=== PATIENT | male | born 1990 | race Caucasian/White ===

== ENCOUNTER 2016-12-29 15:27 | Inpatient (IN) | payer BC ==
[~2016-12-29] VITALS: Ht 180.3 cm; Wt 96.0 kg
[2016-12-29] MEDS ORDERED: KETAMINE 500 MG INJ IV STA (15:31)
[2016-12-29] MEDS ORDERED: HYDROmorphONE 1 MG/ML SYG IV STA ×5 (15:31→22:43)
[2016-12-29] MEDS ORDERED: PROPOFOL 200 MG INJ IV STA (15:31)
[2016-12-29] MEDS ORDERED: ONDANSETRON 4 MG INJ IV STA ×4 (15:31→20:20)
[2016-12-29] MEDS ORDERED: SOD CHLORIDE 0.9% 250 ML IV STA (15:31)
[2016-12-29 15:32] VITALS: Ht 180.3 cm; Wt 96.0 kg
[2016-12-29 15:56] VITALS: TEMP 98.2
--- NOTE | 2016-12-29 16:03 | RADRPT ---
PROCEDURE: XR right ankle. CLINICAL INDICATION: Injury TECHNIQUE: 4 views are available for review. COMPARISON: None available FINDINGS: There is an acute short oblique fracture of the distal third of the fibula with posterior dislocatio n of the talus in relationship to the tibia. The distal fibular fragment remains with the talus. The osseous structures are otherwise unremarkable. There is diffuse soft tissue swelling. IMPRESSION: Acute short oblique fracture of the distal third of the fibula with posterior dislocation of the tyron us in relationship to the tibia. The distal fibular fragment remains with the talus. Soft tissue swelling lateral to the lateral malleolus. RPTAT: HGDB .Antonio Pitt MD, MD Date Time Electronically viewed and signed by .Antonio Pitt MD, on 12/29/2016 16:03 .B/
[2016-12-29 16:25] LABS: ADD SCAN DIFF NO
[2016-12-29 16:28] LABS: BASOPHILS % 0.2 % (0.0-2.0); EOSINOPHILS # 0.1 10^3/ul (0.0-0.5); EOSINOPHILS % 0.6 % (0.0-7.0); HEMATOCRIT 41.2 % (42.0-52.0); HEMOGLOBIN 14.3 g/dl (14.0-18.0); LYMPHOCYTES # 1.9 10^3/ul (0.8-2.9); LYMPHOCYTES % 22.1 % (15.0-51.0); MEAN CORPUSCULAR HEMOGLOBIN 29.6 pg (29.0-33.0); MEAN CORPUSCULAR HGB CONC 34.7 g/dl (32.0-37.0); MEAN CORPUSCULAR VOLUME 85.3 fl (82.0-101.0); MEAN PLATELET VOLUME 9.7 fl (7.4-10.4); MONOCYTE # 0.9 10^3/ul (0.3-0.9); MONOCYTES % 10.3 % (0.0-11.0); NEUTROPHIL # 5.6 10^3/ul (1.6-7.5); NEUTROPHILS % 66.6 % (39.0-77.0); PLATELET COUNT 233 10^3/UL (140-415); RED BLOOD COUNT 4.83 10^6/ul (4.70-6.10); RED CELL DISTRIBUTION WIDTH 12.4 % (11.5-14.5); WHITE BLOOD COUNT 8.5 10^3/ul (4.8-10.8)
--- NOTE | 2016-12-29 16:45 | RADRPT ---
PROCEDURE: XR Ankle. CLINICAL INDICATION: Right ankle pain, follow-up fracture TECHNIQUE: 3 views of the right ankle were performed. COMPARISON: None. FINDINGS: There is interval reduction of the previously seen posterior tibiotalar dislocation. There is a a m ildly displaced obliquely oriented distal fibular fracture above the mortise and probable small post erior and medial malleolar fractures Overlying cast obscures fine bony detail. There is diffuse soft tissue swelling. IMPRESSION: 1. Reduction of previously seen posterior tibiotalar dislocation. 2. Mildly displaced distal fibular fracture above the mortise and probable small posterior and media l malleolar fractures. RPTAT: UU .George Baldwin MD, MD Date Time Electronically viewed and signed by .George Baldwin MD, on 12/29/2016 16:44 .K/
[2016-12-29 16:47] LABS: CALCIUM 8.6 mg/dl (8.4-10.2); CREATININE 0.88 mg/dl (0.61-1.24)
--- NOTE | 2016-12-29 16:54 | ERA ---
ER Documentation Chief Complaint Date/Time DATE: 12/29/16 TIME: 16:51 Chief Complaint right ankle dislocation s/p jumping at [facility] HPI 26-year-old male who presents the emergency room with right ankle deformity. He was [place] [employer] just prior to arrival and had severe pain to the right ankle with what appears to be a dislocation. Patient describes 10 out of 10 pain to the right ankle, constant and nonradiating. No other injuries. ROS All systems reviewed and are negative except as per history of present illness. Medications Home Meds No Active Prescriptions or Reported Meds Allergies Allergies: Coded Allergies: No Known Allergy (Unverified , 12/29/16) PMhx/Soc Hx Alcohol Use: No Hx Substance Use: No Hx Tobacco Use: No FmHx Family History: No diabetes Physical Exam Vitals Vital Signs Date Time Temp Pulse Resp B/P Pulse Ox O2 Delivery O2 Flow Rate FiO2 12/29/16 18:02 84 15 133/82 100 Nasal Cannula 2.0 12/29/16 16:20 86 18 138/83 100 Nasal Cannula 2.0 12/29/16 16:15 86 18 155/98 100 Nasal Cannula 2.0 12/29/16 16:09 88 18 163/94 100 Nasal Cannula 2.0 12/29/16 16:04 100 20 165/100 100 Nasal Cannula 2.0 12/29/16 16:00 97 18 175/100 100 Nasal Cannula 2.0 12/29/16 15:56 98.2 94 18 138/85 100 Nasal Cannula 2.0 12/29/16 15:44 100 4.0 12/29/16 15:32 98.2 97 18 125/76 98 Physical Exam General: Well developed, well nourished, in pain Head: Normocephalic, atraumatic. Eyes: Pupils equally reactive, EOM intact ENT: Moist mucous membranes Neck: Supple, no lymphadenopathy Respiratory: Lungs clear bilaterally, no distress Cardiovascular: RRR, no murmurs, rubs, or gallops Abdominal: Soft, non-tender, non-distended, no peritoneal signs : Deferred MSK: Obvious deformity noted to the right ankle with apparent anterior dislocation of the tibia on the talus, absent DP pulse, 1+ posterior tibial pulse. No tenderness to the knee or proximal tibia or fibula. No break in the skin. Neurologic: Alert and oriented, moving all extremities, normal speech, no focal weakness, no cerebellar signs Skin: No rash Psych: Normal mood Result Diagram: 12/29/16 1620 12/29/16 1620 Results 24 hrs Laboratory Tests Test 12/29/16 16:20 White Blood Count 8.510^3/ul Red Blood Count 4.8310^6/ul Hemoglobin 14.3g/dl Hematocrit 41.2% Mean Corpuscular Volume 85.3fl Mean Corpuscular Hemoglobin 29.6pg Mean Corpuscular Hemoglobin Concent 34.7g/dl Red Cell Distribution Width 12.4% Platelet Count 30240^3/UL Mean Platelet Volume 9.7fl Neutrophils % 66.6% Lymphocytes % 22.1% Monocytes % 10.3% Eosinophils % 0.6% Basophils % 0.2% Nucleated Red Blood Cells % 0.0/100WBC Neutrophils # 5.610^3/ul Lymphocytes # 1.910^3/ul Monocytes # 0.910^3/ul Eosinophils # 0.110^3/ul Basophils # 0.010^3/ul Nucleated Red Blood Cells # 0.010^3/ul Sodium Level 145mmol/L Potassium Level 4.0mmol/L Chloride Level 109mmol/L Carbon Dioxide Level 27mmol/L Anion Gap 13 Blood Urea Nitrogen 15mg/dl Creatinine 0.88mg/dl Glucose Level 94mg/dl Calcium Level 8.6mg/dl Current Medications Medications (Trade) Dose Ordered Sig/Christ Route PRN Reason Start Time Stop Time Status Last Admin Dose Admin Sodium Chloride (NS) 250 ml @ 250 mls/hr Q1H STAT IV 12/29/16 15:31 12/29/16 16:30 DC 12/29/16 16:15 Hydromorphone HCl (Dilaudid) 1 mg ONCE STAT IV 12/29/16 15:31 12/29/16 15:35 DC 12/29/16 15:47 Ondansetron HCl (Zofran Inj) 4 mg ONCE STAT IV 12/29/16 15:31 12/29/16 15:35 DC 12/29/16 15:47 Ketamine HCl (Ketalar) 50 mg ONCE STAT IV 12/29/16 15:31 12/29/16 15:35 DC 12/29/16 15:57 Propofol (Diprivan) 50 mg ONCE STAT IV 12/29/16 15:31 12/29/16 15:35 DC 12/29/16 15:58 Hydromorphone HCl (Dilaudid) 1 mg ONCE STAT IV 12/29/16 16:56 12/29/16 16:57 DC 12/29/16 17:20 Ondansetron HCl (Zofran Inj) 4 mg ONCE STAT IV 12/29/16 16:56 12/29/16 16:57 DC 12/29/16 17:21 Hydromorphone HCl (Dilaudid) 1 mg ONCE STAT IV 12/29/16 17:42 12/29/16 17:43 DC 12/29/16 18:01 Ondansetron HCl (Zofran Inj) 4 mg ONCE STAT IV 12/29/16 17:42 12/29/16 17:43 DC 12/29/16 18:01 Procedures/MDM EKG, MONITORS, & DIAGNOSTIC IMAGING: X-ray right ankle: I reviewed and interpreted multiple views of the x-ray Bones: Anterior dislocation of the tibia on the talus with evidence of distal shaft fracture of the fibula Soft tissue: No evidence of foreign body X-ray right ankle status post reduction: I reviewed and interpreted multiple views of the x-ray Bones: Successful reduction of anterior dislocation of the tibia on the talus with persistent distal shaft fracture of the fibula, less displaced Soft tissue: No evidence of foreign body PROCEDURES: Splint Application Note: Splint type: Stirrup and posterior mold Ortho-Glass Extremity: Right ankle Indication: Ankle fracture and dislocation The patient was consented at bedside prior to splint application and states understanding of risks, benefits, and alternatives. The patient was neurovascularly intact prior to and status post application of the splint. The patient tolerated the procedure well and there were no complications. Procedural sedation note: The patient and/or family member was consented prior to procedure and understands the risks, benefits, alternatives. A document was signed and placed in the chart. ASA class: 1 Mallampati Score: 1 N.p.o. status: Greater than 3 hours Indication: Dislocation of the right ankle with decreased pulses Medications: Ketamine 50 mg, Propofol 50 mg Time out was performed. Emergency airway equipment was placed to the patient's bedside. The patient was placed on supplemental oxygen. Respiratory therapy was available. The patient was placed on a case monitor. The patient tolerated sedation well with no significant adverse events and no significant desaturations. I spent greater than 15 minutes of bedside time with this patient during sedation. Status post sedation the patient was arousable, protecting their airway, and well appearing. Closed reduction: The patient and/or family members were verbally consented for the procedure understanding the risks, benefits, alternatives. The document was signed and placed in the chart. Time out was performed. Indication: Right ankle dislocation fracture Location: Right ankle Technique: Using procedural sedation and gentle traction and countertraction I was able to successfully reduce the patient's ankle. We had return of dorsalis pedis and posterior tibial pulses to 2+ Neurovascular exam: The patient was neurovascularly intact distal to the injury both prior to and status post closed reduction The patient had improvement in anatomic alignment, tolerated the procedure well without complications. LAB INTERPRETATION: No acute process MEDICAL DECISION MAKING: The patient presents to the emergency room with obvious dislocation of the right ankle. There are decreased pulses in emergent reduction is required. ER COURSE: The patient had emergent closed reduction of the right ankle. Please see documentation above with procedural sedation and closed reduction. The patient now has pulses to the right lower extremity. He is at risk for compartment syndrome. No evidence of loss of pulses. I spoke to Dr. Schaefer, on- call for orthopedic surgery. We discussed the case. He felt that if the pain could be controlled he can be discharged with outpatient follow-up however the patient has required multiple doses of pain medication. For this reason I believe inpatient hospitalization for serial exams, orthopedic consultation would be most appropriate. I kept the patient and/or family informed of laboratory and diagnostic imaging results throughout the emergency room course. DISPOSITION PLAN: Medical surgical admission CONSULTATION: Accepting care team and consultations: I discussed the current laboratory data, diagnostic imaging and emergency care provided. Admitting team: Dr. Tompkins Admitting team indication: Insurance directed Consulting services: Orthopedic surgery Dr. Schaefer Departure Diagnosis: Primary Impression: Closed dislocation of right ankle Qualified Code: S93.04XA - Closed dislocation of right ankle, initial encounter Additional Impression: Closed fracture of right distal fibula Qualified Code: S82.831A - Closed fracture of distal end of right fibula, unspecified fracture morphology, initial encounter Condition: Stable ALMA ADRIAN MD Dec 29, 2016 16:54
[2016-12-29] MEDS ORDERED: ONDANSETRON 4 MG INJ IV PRN (19:30)
[2016-12-29] MEDS ORDERED: ACETAMINOPHEN 325 MG TAB PO PRN (19:30)
[2016-12-30 00:02] VITALS: BP 122/78; RESP 20
[2016-12-30] MEDS ORDERED: ONDANSETRON 4 MG INJ IV PRN (00:30)
[2016-12-30] MEDS ORDERED: ACETAMINOPHEN 500 MG TAB PO PRN (00:30)
[2016-12-30] MEDS: morphine 4 MG/ML VIAL IV PRN ×2 (00:44→04:52)
[2016-12-30 06:03] LABS: ADD SCAN DIFF NO
[2016-12-30 06:11] LABS: BASOPHILS % 0.2 % (0.0-2.0); EOSINOPHILS # 0.1 10^3/ul (0.0-0.5); EOSINOPHILS % 1.1 % (0.0-7.0); HEMATOCRIT 40.7 % (42.0-52.0); HEMOGLOBIN 13.9 g/dl (14.0-18.0); LYMPHOCYTES # 2.1 10^3/ul (0.8-2.9); LYMPHOCYTES % 25.1 % (15.0-51.0); MEAN CORPUSCULAR HEMOGLOBIN 29.4 pg (29.0-33.0); MEAN CORPUSCULAR HGB CONC 34.2 g/dl (32.0-37.0); MEAN PLATELET VOLUME 10.4 fl (7.4-10.4); MONOCYTE # 1.3 10^3/ul (0.3-0.9); MONOCYTES % 15.5 % (0.0-11.0); NEUTROPHIL # 4.8 10^3/ul (1.6-7.5); NEUTROPHILS % 57.9 % (39.0-77.0); PLATELET COUNT 214 10^3/UL (140-415); RED BLOOD COUNT 4.73 10^6/ul (4.70-6.10); RED CELL DISTRIBUTION WIDTH 12.5 % (11.5-14.5); WHITE BLOOD COUNT 8.3 10^3/ul (4.8-10.8)
[2016-12-30 06:26] LABS: CALCIUM 8.6 mg/dl (8.4-10.2); CREATININE 0.91 mg/dl (0.61-1.24); POTASSIUM 3.6 mmol/L (3.5-5.1)
[2016-12-30 06:31] LABS: INR 1.11; PROTIME 14.3 Sec (12.2-14.2); PT RATIO 1.1
[2016-12-30 06:36] LABS: PARTIAL THROMBOPLASTIN TIME 30.1 Sec (25.0-35.0)
[2016-12-30 07:31] VITALS: BP 118/73; RESP 16
[2016-12-30] MEDS: HYDROmorphONE 2 MG/ML SYG IV PRN ×3 (08:07→19:35)
--- NOTE | 2016-12-30 12:37 | RADRPT ---
PROCEDURE: CT of the right ankle without contrast CLINICAL INDICATION: Fracture TECHNIQUE: CT scan of the right ankle was performed . No IV contrast was administered. Coronal a nd sagittal reformatted images were obtained from the axial source images. Images were reviewed on a high-resolution PACS workstation. The calculated radiation dose measures 468.18 mGy centimeters. T he CTDI measures 18.31 mGy. One or more of the following dose reduction techniques were used: - Automated exposure control. - Adjustment of the mA and/or kV according to patient size . - Use of iterative reconstruction technique. COMPARISON: Radiographs from 12/29/2016 FINDINGS: Osseous structures: There is a comminuted and minimally displaced fracture of the medial malleolus more pronounced at it s posterior aspect. There is a oblique mildly displaced fracture of the distal fibula with small co mminuted lateral butterfly fragments. The major fracture fragments are displaced by up to 5 mm in th e AP direction. Fracture originates just proximal to the tibiofibular distal syndesmosis. The ankle mortise otherwise appears intact. There is no widening of the syndesmosis distally. The tibiotala r, subtalar and midfoot articulations are maintained. No evidence for tarsal coalition. Soft tissues: There is a mild amount of subcutaneous stranding noted about the ankle associated with the fracture. A small tibiotalar joint effusion is present. Attenuation of the visualized tendons is within nor mal limits for CT. IMPRESSION: 1. Comminuted, minimally displaced medial malleolar fracture, as above. 2. Mildly displaced distal fibular fracture. RPTAT: PP .Keith Menon MD, MD Date Time Electronically viewed and signed by .Keith Menon MD, MD on 12/30/2016 12:37 .d/
--- NOTE | 2016-12-30 13:27 | CONS ---
DATE OF ADMISSION: 12/29/2016 DATE OF CONSULTATION: 12/30/2016 HISTORY OF PRESENT ILLNESS: The patient is a 26-year-old male who was admitted on 12/29/2016 when [place] [facility] came to the emergency room complaining of painful swelling and deformity involving his right ankle . According to available information, he was up on a trampoline ____ [employer] [place] and he fell sustainin g injury to his right ankle. Following the incident, there was an obvious deformity along with the pain and he was brought into the emergency room. Following initial evaluation in the emergency room including radiologic evaluation, which revealed an obvious fracture dislocation of the ankle, his a nkle was successfully reduced in the emergency room which was followed by splint immobilization. He has been in good health without any unusual or serious medical problems. PHYSICAL EXAMINATION: My examination revealed a 26-year-old male who was not in any acute distress. His right ankle was immobilized in a posterior splint and there were no signs of acute neurovascul ar compromise. He did not have any open wounds, according to the ER report. X-rays of the right ankle pre-reduction and post-reduction revealed a fracture of the lateral malleo [place] along with possible disruption of the distal tibiofibular syndesmosis along with the obvious dis location at the talotibial articulation. The post-reduction x-rays of the right ankle in the splint shows acceptable alignment of the ankle with obvious changes in the ankle mortise and a fracture in volving the lateral malleolus. DIAGNOSTIC IMPRESSION: Fracture dislocation of the right ankle with the fracture of the lateral mal leolus with the disruption of the distal tibiofibular syndesmosis, status post manipulative reductio n in the emergency room. TREATMENT PLAN: 1. Get a CT scan to further clarify the alignment and fracture pattern. 2. To surgery for right open reduction and internal fixation of the fracture dislocation of the rig ht ankle in earliest convenience. Dictated By: CEZAR MICHAEL/ALOK Conf#: [id number] DID#: [id number]
[2016-12-30 14:15] VITALS: BP 123/74; PULSE 67; RESP 19
[2016-12-30] MEDS: HYDROCODONE/APAP (5/325) TAB PO PRN (14:43)
--- NOTE | 2016-12-30 19:38 | HP ---
DATE OF ADMISSION: 12/29/2016 HISTORY OF PRESENT ILLNESS: The patient is a 26-year-old gentleman who presented to the emergency r oom with painful swelling involving the right ankle. Apparently, he was up on a trampoline and he f ell and sustained injury to the right ankle. Patient complaining of severe pain, and patient had ev idence of fracture, dislocation of the right ankle, which was reduced in the emergency room and was admitted to the medical floor. REVIEW OF SYSTEMS: HEAD: No history of headaches, focal weakness or numbness. EYES: No blurry vision or glaucoma. ENT: Noncontributory. NECK: No history of thyroid disease. CHEST: No bronchitis, hay fever or asthma. Patient does not smoke. The patient does admit to snor ing at night. No definite history of obstructive sleep apnea. HEART: No PND, orthopnea, palpitations. GASTROINTESTINAL: No constipation, diarrhea, change in bowel habits. GENITOURINARY: No dysuria, hematuria or kidney stones. ALLERGIES: NO KNOWN ALLERGIES. MEDICATIONS: None. HABITS: Does not smoke or drink. FAMILY HISTORY: Negative for diabetes, hypertension or cancer. PHYSICAL EXAMINATION: GENERAL: No history of weight loss or weight gain. On physical exam, patient is a very pleasant ge ntleman who is presently in no acute distress (patient has been getting Dilaudid intravenously for p ain, p.o. narcotics not helpful). VITAL SIGNS: Temperature 97.7, blood pressure 120/74, O2 sat is 98% on room air. HEENT: Head normocephalic. No pallor, cyanosis or icterus. Tongue is moist. NECK: Supple. No thyromegaly, bruits or lymphadenopathy. LUNGS: Clinically clear. HEART: S1, S2 heard with no definite gallops or murmurs. ABDOMEN: Soft, nontender, no hepatosplenomegaly. EXTREMITIES: Right foot and ankle in a splint. Left lower extremity, no edema. Pedal pulsations 4 + left side. Homans sign is negative on the left. NEUROLOGIC: No localizing or lateralizing signs. RECTAL: Deferred at patient's request. LABORATORY DATA: Initial WBC count 8.5, hematocrit is 41.2, platelet count 233,000. Sodium 145, po tassium 4, BUN 15, creatinine 0.88, random glucose 94. X-ray of the right ankle shows displaced dis tyron fibular fracture and small posterior and medial malleolar fractures. CT shows mildly displaced distal tibiofibular fracture, comminuted minimally displaced medial malleolar fracture. IMPRESSION: Right ankle fracture, distal fibular and minimally displaced comminuted medial malleola r fracture. PLAN: The patient's overall medical condition is stable. We will continue narcotic analgesia and Helene Schaefer's recommendations will be followed with right open reduction internal fixation. Dictated By: KIERSTEN SMITH MD, SR/NTS Conf#: [id number] DID#: [id number]
[2016-12-30 20:01] VITALS: BP 127/76; RESP 18
[2016-12-30] MEDS: DEXTROSE 5%-0.225% NACL 1,000 ML IV SCH (20:57)
[2016-12-31] VITALS (20 sets, daily range): BP systolic 102–135; BP diastolic 54–77; PULSE 76–98; RESP 12–19
[2016-12-31] MEDS: HYDROmorphONE 2 MG/ML SYG IV PRN ×3 (01:26→20:27)
[2016-12-31] MEDS: DEXTROSE 5%-0.225% NACL 1,000 ML IV SCH (07:13)
[2016-12-31] MEDS ORDERED: POLYMYXIN/BACITRACIN 1L IRRIG ONE (08:29)
[2016-12-31] MEDS ORDERED: PROPOFOL 20 ML ONE (08:37)
[2016-12-31] MEDS ORDERED: GLYCOPYRROLATE 1 MG INJ ONE (08:37)
[2016-12-31] MEDS ORDERED: METOCLOPRAMIDE 10 MG INJ ONE (08:38)
[2016-12-31] MEDS ORDERED: ROPIVACAINE 0.5 % 30 ML VIAL ONE (08:38)
[2016-12-31] MEDS ORDERED: MIDAZOLAM 1 MG/ML 2 ML INJ ONE (08:38)
[2016-12-31] MEDS ORDERED: FENTAnyl 50 MCG/ML VIAL ONE (08:38)
[2016-12-31] MEDS ORDERED: KETOROLAC 30 MG INJ ONE (09:25)
[2016-12-31] MEDS ORDERED: ACETAMINOPHEN 1000MG/100ML IV 100 ML ONE (09:26)
[2016-12-31] MEDS ORDERED: DIPHENHYDRAMINE 50 MG INJ IV PRN (09:30)
[2016-12-31] MEDS ORDERED: METOCLOPRAMIDE 10 MG INJ IV PRN (09:30)
[2016-12-31] MEDS ORDERED: HYDROmorphONE (0.2 MG/ML) 10ML SYG IV PRN ×3 (09:30)
[2016-12-31] MEDS ORDERED: ONDANSETRON 4 MG INJ IV PRN (09:30)
[2016-12-31] MEDS ORDERED: MEPERIDINE 25 MG INJ IV PRN (09:30)
[2016-12-31] MEDS ORDERED: HYDROmorphONE 2 MG/ML SYG ONE (10:13)
[2016-12-31] MEDS ORDERED: NACL 0.9% 3 ML SYG IV SCH (11:00)
[2016-12-31] MEDS ORDERED: HYDROCODONE/APAP (5/325) TAB PO PRN (11:00)
[2016-12-31] MEDS ORDERED: morphine 2 MG INJ IV PRN (11:00)
--- NOTE | 2016-12-31 12:30 | OPR ---
DATE OF OPERATION: 12/31/2016 PREOPERATIVE DIAGNOSIS: Bimalleolar fracture dislocation of the right ankle with the disruption of the distal tibiofibular syndesmosis. POSTOPERATIVE DIAGNOSIS: Bimalleolar fracture dislocation of the right ankle with the disruption of the distal tibiofibular syndesmosis. PROCEDURE PERFORMED: 1. Open reduction and internal fixation of the bimalleolar fracture of the right ankle. 2. Repair of syndesmosis the syndesmotic screw. ANESTHESIA: General anesthesia. SURGEON: Cezar Schaefer MD PROCEDURE AND FINDINGS: Under anesthesia, the patient was placed in supine position upon the operat ing table. Usual prep and drape was done exposing the right ankle. A tourniquet was placed over th e proximal portion of the right thigh and was inflated up to 300 mmHg prior to the procedure. First , the right ankle was reevaluated under fluoroscopic monitoring. The alignment at the ankle joint w as acceptable. There was a fracture involving the lateral malleolus. There also was a fracture inv olving the medial malleolus which was not obvious in the previous x-rays. It was also noted that th ere was a widening of the distal tibiofibular syndesmosis. The fracture of the lateral malleolus was approached through the lateral longitudinal incision. By blunt and sharp dissection, the fracture was identified. There was a small fragmentation which made the fracture unstable. There also was an obvious disruption of the distal syndesmosis. The fractu re of the lateral malleolus was reduced and held reduced with bone clamp and then this was internall y fixed using the plate for lateral malleolus. Attention was then directed to the medial malleolar fracture. By oblique incision, medial malleolus was approached and this was reduced and held reduced while this was internally fixed using 50 mm lo ng 4.0 cannulated screws. The separation of the distal tibiofibular syndesmosis was reduced and int ernally fixed using a syndesmotic screw through which was inserted through the screw hole in the zari te for lateral malleolus fracture. At the end of the procedure, the alignment of all the fractures was satisfactory and the position of the fixation device was proper. After irrigation and hemostasis, closure of the incision was carried out using 0 Vicryl for muscle a nd fascia and 2-0 Vicryl for subcutaneous tissues. Final skin closure was carried out with skin sta ples. Usual sterile pressure dressings were applied. The patient tolerated the entire procedure very well and was sent to the recovery room in good condi tion. Dictated By: CEZAR MICHAEL/ALOK Conf#: [id number] DID#: [id number]
[2016-12-31] MEDS: CEFAZOLIN 1 GM/50 ML (PMX) 50 ML IVPB SCH ×2 (13:03→20:54)
[2017-01-01] MEDS: DEXTROSE 5%-0.225% NACL 1,000 ML IV SCH ×2 (00:25→14:41)
[2017-01-01] MEDS: HYDROmorphONE 2 MG/ML SYG IV PRN ×7 (02:32→23:04)
[2017-01-01] MEDS: HYDROCODONE/APAP (5/325) TAB PO PRN ×2 (03:28→09:37)
[2017-01-01] MEDS: CEFAZOLIN 1 GM/50 ML (PMX) 50 ML IVPB SCH ×2 (03:28→03:34)
--- NOTE | 2017-01-01 07:19 | PN ---
DATE: 12/31/2016 SUBJECTIVE: The patient is status post open reduction and internal fixation of bimalleolar fracture of the right ankle by Dr. Schaefer. Patient was seen postop. The patient has mild pain in the right fo ot. Denies any chest pain or shortness of breath. PHYSICAL EXAMINATION: VITAL SIGNS: Temperature 97.8, blood pressure 129/74, O2 sats 95% on 2 liters nasal cannula. CHEST: Clinically clear. HEART: S1, S2 with no definite gallops. EXTREMITIES: No edema. Right lower extremity wrapped. Right foot wrapped in dressing. IMPRESSION: 1. Right ankle fracture, status post operative reduction internal fixation of bimalleolar fracture of the right ankle. 2. Status post repair of syndesmosis with a screw. PLAN: Continue narcotic analgesia and orthopedic management per Dr. Schaefer. Dictated By: KIERSTEN SMITH MD, SR/ALOK Conf#: [id number] DID#: [id number]
--- NOTE | 2017-01-01 07:50 | PN ---
Date/Time of Note Date/Time of Note DATE: 01/01/17 TIME: 07:07 Assessment/Plan VTE Prophylaxis VTE Prophylaxis Intervention: LMWH, SCD's Lines/Catheters IV Catheter Type (from Nrsg): Peripheral IV Urinary Cath still in place: No Subjective 24 Hr Interval Summary Free Text/Dictation Anesthesia note: A 26 year male s/p ORIF right ankle for fall of trambulin and ankle fracture under [place] and right popliteal and ankle saphenous block. I had a call from the nurse yesterday that pt is complainnig of numbness of right hand, 3 fingers and wondering if there is a block on upper extremity. I saw the patient today. pt said he had numbness on right tenar and firstand second fingers until 9 pm last night that had resolved. during the surgery arms were on arm board with 90 degree fllex. there is no numbness , sensory and motorexam normal. Exam/Review of Systems Vital Signs Vitals Vital Signs Date Time Temp Pulse Resp B/P Pulse Ox O2 Delivery O2 Flow Rate FiO2 12/31/16 20:09 98.0 82 18 120/75 97 12/31/16 17:09 Room Air 12/31/16 13:15 2.0 Intake and Output 12/31/16 12/31/16 01/01/17 15:00 23:00 07:00 Intake Total 2250 ml 1345 ml 470 ml Output Total 5 ml 1500 ml 400 ml Balance 2245 ml -155 ml 70 ml Results Result Diagram: 12/30/16 0505 12/30/16 0530 Medications Medications Current Medications Acetaminophen (Tylenol Tab) 500 mg Q4H PRN PO PAIN AND OR ELEVATED TEMP Last administered on 12/31/16 17:21; Admin Dose 500 MG; Start 12/30/16 at 00:30 Zolpidem Tartrate (Ambien) 10 mg HS PRN PO INSOMNIA; Start 12/30/16 at 00:30 Ondansetron HCl (Zofran Inj) 4 mg Q4H PRN IV NAUSEA AND/OR VOMITING Last administered on 12/30/16 12:26; Admin Dose 4 MG; Start 12/30/16 at 00:30 Hydromorphone HCl (Dilaudid) 2 mg Q3H PRN IV PAIN Last administered on 05:37; Admin Dose 2 MG; Start 12/30/16 at 08:00 Acetaminophen/ Hydrocodone Bitart 1 tab 1 tab Q4H PRN PO PAIN Last administered on 01/01/17 03:28; Admin Dose 1 TAB; Start 12/30/16 at 15:00 Dextrose/Sodium Chloride (D5-1/4ns) 1,000 ml @ 38 mls/hr Q24H IV Last administered on 12/31/16 07:13; Admin Dose 75 MLS/HR; Start 12/30/16 at 19:30 Enoxaparin Sodium (Lovenox) 40 mg DAILY SC ; Start 01/01/17 at 09:00 Morphine Sulfate (morphine) 2 mg Q3H PRN IV PAIN; Start 12/31/16 at 11:00 Acetaminophen/ Hydrocodone Bitart ([place] (5/325)) 1 tab Q3H PRN PO PAIN Last administered on 12/31/16 23:29; Admin Dose 1 TAB; Start 12/31/16 at 11:00 LUPE CHANDRA MD Jan 01, 2017 07:50
[2017-01-01 07:52] VITALS: BP 133/82; RESP 18
[2017-01-01] MEDS: ENOXAPARIN 40 MG/0.4 ML SYG SC SCH (08:57)
[2017-01-01] MEDS: HYDROCODONE/APAP (10/325) TAB PO PRN ×3 (13:13→21:14)
--- NOTE | 2017-01-01 14:44 | PN ---
DATE: 01/01/2017 SUBJECTIVE: Patient has severe pain, right foot and ankle. P.o. intake fair. No nausea, vomiting, no BMs today. PHYSICAL EXAMINATION GENERAL: The patient is afebrile. Temperature 98.5, blood pressure 130/82, O2 saturation 95%. HEENT: Head normocephalic. CHEST: Clinically clear. HEART: S1, S2 with no definite gallops. EXTREMITIES: No edema on the left lower extremity, right foot drop. IMPRESSION: 1. Right ankle fracture status post open reduction internal fixation bimalleolar fracture of the ri ght ankle. 2. Status post repair of syndesmosis with screw. Patient continues to have severe pain. We will c ontinue narcotic analgesia, [place] 10/325 ordered as well. Follow recommendations per Dr. Schaefer. Dictated By: KIERSTEN SMITH MD SR/NTS Conf#: [id number] DID#: [id number]
--- NOTE | 2017-01-01 15:12 | RADRPT ---
PROCEDURE: 17 intraoperative radiographs of the right ankle. CLINICAL INDICATION: Intraoperative evaluation for open reduction and internal fixation of fractur e. TECHNIQUE: A total of 17 intraoperative radiographs were obtained in the AP and lateral views. COMPARISON: Right ankle 12/29/2016. FINDINGS: A spiral fracture is noted on the AP view to the distal fifth of the right fibula. Subsequent image s demonstrate placement of an orthopedic compression plate which is secured with lag screws to the d istal fibula and a longer syndesmotic screw transfixing the distal fibula and tibia. Subsequently, a Marina and is placed across a fracture to the medial malleolus of the distal tibia. This is [place] bsequently replaced with a threaded internal fixation screw with anatomic alignment noted between th e fracture fragments. The ankle mortise is well maintained. IMPRESSION: 1. Status post reduction and internal fixation of fractures through the distal diaphysis of the rig ht fibula and medial malleolus of the right tibia. 2. Fluoro time: Not listed. mGy: Not listed. RPTAT:AAJJ Physician Ester Date Time Electronically viewed and signed by Physician Ester on 01/01/2017 15:12 AUBRIE/
--- NOTE | 2017-01-01 15:32 | RADRPT ---
PROCEDURE: XR Ankle. CLINICAL INDICATION: Postop fracture. TECHNIQUE: Right ankle x-rays, 3 views. COMPARISON: 12/29/2016. FINDINGS: Bone density appears normal. Surgical changes compatible with ORIF of distal fibular and medial mal leolar fractures are present. Alignment is well maintained. Soft tissue edema is present. Surgica l skin surinder are in place along the medial and lateral aspects of the ankle. IMPRESSION: Surgical changes compatible with ORIF of distal fibular and medial malleolar fractures. RPTAT: HLST .Starr Min MD, MD Date Time Electronically viewed and signed by .Starr Min MD, MD on 01/01/2017 15:31 .T/
[2017-01-01 19:50] VITALS: BP 124/82; RESP 18
--- NOTE | 2017-01-01 20:15 | PN ---
DATE: 01/01/2017 First postop day. Considerable pain. Had been up with physical therapy with crutches. Afebrile. Postop x-ray revealed satisfactory alignment of the fracture with proper position of the fixation de vice. The patient can be discharged if his pain can be controlled with oral analgesics. Dictated By: CEZAR MICHAEL/ALOK Conf#: [id number] DID#: [id number]
[2017-01-01] MEDS: ZOLPIDEM 5 MG TAB PO PRN (23:55)
[2017-01-02] MEDS: DEXTROSE 5%-0.225% NACL 1,000 ML IV SCH (00:25)
[2017-01-02] MEDS: HYDROCODONE/APAP (10/325) TAB PO PRN ×4 (06:18→20:15)
[2017-01-02 07:23] VITALS: BP 128/81; RESP 16
[2017-01-02] MEDS: ENOXAPARIN 40 MG/0.4 ML SYG SC SCH (09:28)
[2017-01-02] MEDS: HYDROmorphONE 2 MG/ML SYG IV PRN (12:30)
[2017-01-02 20:00] VITALS: BP 125/75; RESP 18
[2017-01-03] MEDS: ZOLPIDEM 5 MG TAB PO PRN (00:05)
[2017-01-03] MEDS: DEXTROSE 5%-0.225% NACL 1,000 ML IV SCH (00:25)
[2017-01-03] MEDS: HYDROCODONE/APAP (10/325) TAB PO PRN ×2 (06:52→11:13)
[2017-01-03 07:22] VITALS: BP 121/79; RESP 18
--- NOTE | 2017-01-03 07:38 | PN ---
DATE: 01/02/2017 SUBJECTIVE: The patient continues to have pain, right foot, /10. Denies any chest pain or shortne ss of breath. OBJECTIVE: VITAL SIGNS: The patient is afebrile, blood pressure 128/81, respirations 20 per minute. LUNGS: Clinically clear. HEART: S1, S2, no definite gallops. EXTREMITIES: No calf tenderness on the right lower extremity. IMPRESSION: Status post right ankle fracture, status post open reduction internal fixation. PLAN: Continue narcotic analgesia and recommendations per Dr. Schaefer. Dictated By: IKERSTEN SMITH MD SR/NTS Conf#: [id number] DID#: [id number]
[2017-01-03] MEDS: ENOXAPARIN 40 MG/0.4 ML SYG SC SCH (08:51)
[2017-01-03] MEDS: HYDROCODONE/APAP (5/325) TAB PO PRN (08:51)
--- NOTE | 2017-01-03 13:17 | DS ---
DATE OF ADMISSION: 12/29/2016 DATE OF DISCHARGE: 01/03/2017 FINAL DIAGNOSES: 1. Bimalleolar fracture dislocation of the right ankle with disruption of the distal tibiofibular s yndesmosis, status post postoperative reduction and internal fixation (of the bimalleolar fracture o f the right ankle). 2. Status post repair of a syndesmosis with placement of syndesmotic screw. HOSPITAL COURSE: The patient is a 26-year-old gentleman presenting to the emergency room with painf ul swelling of the right ankle after falling off a trampoline. Sustained a fracture of right ankle. The patient was seen by Dr. Schaefer and underwent open reduction, internal fixation of fracture. Post operative course was uneventful except for mild numbness in the right hand, which resolved, and had been seen by the anesthesiologist, and the patient was discharged home in much improved condition on 01/03/2017 to be followed by Dr. Schaefer over the course of the next [address] Schaefer had already give n a prescription for [place] 5/325 mg, 1 tablet p.o. q.4h. p.r.n. Front front-wheel walker was deb hayes as well along with crutches. DISCHARGE CONDITION: Much improved. Dictated By: KIERSTEN SMITH MD SR/NTS Conf#: [id number] DID#: [id number]
[2017-01-03] MEDS ORDERED: MAGNESIUM CITRATE 300 ML BTL PO ONE (13:30)
== END 2017-01-03 14:55 | disposition home or self-care (01) | DRG 494 ==
LOC: E/R 15:27 → MS2 19:09
PROVIDERS: ADMIT Internal Medicine; ATTEND Internal Medicine
PROC: 0SQF0ZZ Repair Right Ankle Joint, Open Approach (ICD-10-PCS; 2016-12-31)
PROC: 0QSJ04Z Reposition Right Fibula with Internal Fixation Device, Open Approach (ICD-10-PCS; 2016-12-31)
PROC: 0QSG04Z Reposition Right Tibia with Internal Fixation Device, Open Approach (ICD-10-PCS; principal; 2016-12-31 08:30)
DX: S82.841A Displaced bimalleolar fracture of right lower leg, initial encounter for closed fracture (principal); S93.431A Sprain of tibiofibular ligament of right ankle, initial encounter; W17.89XA Other fall from one level to another, initial encounter; Y93.44 Activity, trampolining; Y92.89 Other specified places as the place of occurrence of the external cause
CPT/HCPCS: 73700; 80048; 85025; 85610; 85730; 97116; 97161; 97530; C1713; J0131; J0690; J1170; J1650; J1885; J2250; J2270; J2405; J2765; J2795; J3010; J7040

== ENCOUNTER 2017-04-11 10:41 | Day surgery (SDC) | payer BC ==
[2017-04-09 13:32] LABS: BASOPHILS % 0.3 % (0.0-2.0); EOSINOPHILS # 0.1 10^3/ul (0.0-0.5); EOSINOPHILS % 1.9 % (0.0-7.0); HEMATOCRIT 43.3 % (42.0-52.0); HEMOGLOBIN 15.3 g/dl (14.0-18.0); LYMPHOCYTES # 2.3 10^3/ul (0.8-2.9); MEAN CORPUSCULAR HEMOGLOBIN 29.9 pg (29.0-33.0); MEAN CORPUSCULAR HGB CONC 35.3 g/dl (32.0-37.0); MEAN CORPUSCULAR VOLUME 84.7 fl (82.0-101.0); MEAN PLATELET VOLUME 9.6 fl (7.4-10.4); MONOCYTE # 0.5 10^3/ul (0.3-0.9); MONOCYTES % 8.7 % (0.0-11.0); NEUTROPHILS % 49.1 % (39.0-77.0); PLATELET COUNT 250 10^3/UL (140-415); RED BLOOD COUNT 5.11 10^6/ul (4.70-6.10); RED CELL DISTRIBUTION WIDTH 12.1 % (11.5-14.5); WHITE BLOOD COUNT 5.8 10^3/ul (4.8-10.8)
--- NOTE | 2017-04-09 13:50 | RADRPT ---
PROCEDURE: Chest radiograph series. CLINICAL INDICATION: Preop TECHNIQUE: PA and lateral chest x-ray. COMPARISON: Chest radiograph series 11/04/2013 FINDINGS: The cardiomediastinal silhouette is unremarkable. The lungs and costophrenic angles are clear. The o sseous structures are unremarkable. IMPRESSION: 1. Unremarkable chest radiograph series. RPTAT: KK .Kulwant Bruce MD, MD Date Time Electronically viewed and signed by .Kulwant Bruce MD, on 04/09/2017 13:50 .B/
[2017-04-09 13:51] LABS: INR 0.99; PARTIAL THROMBOPLASTIN TIME 29.5 Sec (25.0-35.0); PROTIME 13.1 Sec (12.2-14.2)
[2017-04-09 13:57] LABS: ALBUMIN 4.7 g/dl (3.3-4.9); ALBUMIN/GLOBULIN RATIO 1.3; BILIRUBIN,INDIRECT 0.5 mg/dl (0-1.1); BILIRUBIN,TOTAL 0.5 mg/dl (0.2-1.3); TOTAL PROTEIN 8.3 g/dl (6.1-8.1)
[2017-04-09 13:59] LABS: CALCIUM 9.6 mg/dl (8.4-10.2); CREATININE 0.89 mg/dl (0.61-1.24)
--- NOTE | 2017-04-10 17:33 | HP ---
DATE OF ADMISSION: 04/11/2017 HISTORY OF PRESENT ILLNESS: He is a 26-year-old gentleman, who was going to be admitted on an elective basis for removal of the syndesmotic screw, right ankle, per Dr. Schaefer on 04/11/2017. The patient is a 26-year-old gentleman, who developed severe pain and swelling, right ankle, first week of December when he was up on a trampoline. He fell and sustained injury to the right ankle. The patient had been seen by Dr. Schaefer. The patient was found to have a right ankle fracture, bimalleolar fracture with dislocation of the right ankle, and he underwent operative reduction, internal fixation. The same with placement of syndesmotic screw. The patient was discharged on 01/03/2017 and has been gradually feeling better with less pain. ALLERGIES: NO KNOWN ALLERGIES. MEDICATIONS: None. REVIEW OF SYSTEMS: HEAD: No history of headache, focal weakness, or numbness. EYES: No blurry vision or glaucoma. ENT: Noncontributory. NECK: No history of thyroid disease. CHEST: No bronchitis, hay fever, or asthma. The patient does not smoke. HEART: No PND, orthopnea, palpitations, or shortness of breath. GASTROINTESTINAL: No constipation, diarrhea, change of bowel habits. GENITOURINARY: No dysuria, hematuria, kidney stones. SLEEP: The patient does admit to snoring at night. No definite history of obstructive sleep apnea. ALLERGIES: NO KNOWN ALLERGIES. HABITS: Does not smoke or drink. FAMILY HISTORY: Negative for diabetes, hypertension, or cancer. PHYSICAL EXAMINATION: GENERAL: No history of weight loss or weight gain. The patient is a very pleasant gentleman who is presently in no acute distress. VITAL SIGNS: Blood pressure 130/80, respiratory rate 20 per minute, pulse 80 per minute, regular. HEENT: Head, normocephalic. No pallor, cyanosis, or icterus. Tongue is moist. NECK: Supple. No thyromegaly, bruits, or lymphadenopathy. CHEST: Clinically clear. HEART: S1, S2 heard. No definite gallops or murmurs. ABDOMEN: Soft and nontender. No hepatosplenomegaly. EXTREMITIES: Minimal tenderness on palpation of the right ankle. No edema. Homans' sign is negative. NEUROLOGIC: No localizing or lateralizing signs. LABORATORY: WBC count 5.8, hematocrit 43.3, platelet count 250,000. Sodium 142, potassium 4, BUN 16, creatinine 0.89, PT/INR 0.99, PTT 29.5. Chest x-ray shows lung gallo clear. Heart size is normal. IMPRESSION: Status post right ankle fracture for the removal of the syndesmotic screw per Dr. Schaefer. The patient's overall medical condition is stable for the procedure per Dr. Schaefer. Dictated By: Malcolm Tompkins MD /aleena/merissa /Document#: [id number]
[2017-04-11] VITALS (9 sets, daily range): BP systolic 117–134; BP diastolic 63–81; PULSE 70–78; RESP 14–16; Ht 170.2 cm; Wt 94.1 kg
[~2017-04-11] VITALS: Ht 170.2 cm; Wt 94.1 kg
--- NOTE | 2017-04-11 13:55 | HPN ---
Date/Time of Note Date/Time of Note DATE: 04/11/17 TIME: 13:55 Interval H&P Admission Note Pt. seen H&P reviewed: No system changes DU ABEL MD Apr 11, 2017 13:55
[2017-04-11] MEDS ORDERED: FENTAnyl 50 MCG/ML VIAL ONE (14:59)
[2017-04-11] MEDS ORDERED: MIDAZOLAM 1 MG/ML 2 ML INJ ONE (14:59)
[2017-04-11] MEDS ORDERED: ROPIVACAINE 0.5 % 30 ML VIAL ONE (15:42)
[2017-04-11] MEDS ORDERED: MEPERIDINE 100 MG INJ ONE (15:57)
--- NOTE | 2017-04-11 15:57 | SIPON ---
Date/Time of Note Date/Time of Note DATE: 04/11/17 TIME: 15:51 Operative Report Preoperative Diagnosis presence of a syndesmodic screw in Rt. ankle. S/P O.R.I.F. of bimalleolar fracture of Rt. ankle Postoperative Diagnosis same as preop Operation/Procedure Performed removal of a syndesmodic scrw from Rt. ankle Surgeon see signature line Anesthesia Type: general Estimated Blood Loss: 0 - 10 ml's Transfusion Required: no Specimens a syndesmodic scrw Grafts/Implants: none Complications: no DU ABEL MD Apr 11, 2017 15:57
[2017-04-11] MEDS ORDERED: LIDOCAINE 2% (SDV) 5 ML INJ ONE (15:58)
[2017-04-11] MEDS ORDERED: PROPOFOL 20 ML ONE (15:58)
[2017-04-11] MEDS ORDERED: ONDANSETRON 4 MG INJ ONE (16:00)
[2017-04-11] MEDS ORDERED: CEFAZOLIN 1 GM INJ ONE (16:00)
--- NOTE | 2017-04-11 16:59 | OPR ---
DATE OF OPERATION: 04/11/2017 PREOPERATIVE DIAGNOSIS: Presence of syndesmotic screw over the right ankle status post open reduction internal fixation (ORIF) of bimalleolar fracture of the right ankle. POSTOPERATIVE DIAGNOSIS: Presence of syndesmotic screw over the right ankle status post open reduction internal fixation (ORIF) of bimalleolar fracture of the right ankle. OPERATION PERFORMED: Removal of a syndesmotic screw from the right ankle. ANESTHESIA: General anesthesia. SURGEON: Ami Schaefer MD OPERATIVE PROCEDURE: Under anesthesia, the patient was placed in supine position upon the operating table. A tourniquet was placed over the proximal portion of the right thigh and was inflated up to 250 mmHg prior to the procedure. The usual prep and drape was done exposing the right ankle. Under fluoroscopic monitoring exact position of the syndesmotic screw was identified, a small stab incision was made over the lateral aspect of the right ankle over the previous incision by blunt and sharp dissection. The screw head was exposed and then the screw was removed using 4.0 cannulated screw set drivers. After removing the syndesmotic screw the removal of the screw was confirmed by fluoroscopic examination. The stab incision was closed with 2 interrupted simple sutures. A proper dressings were applied. The patient tolerated the entire procedure very well and was sent to the recovery room in excellent condition. Dictated By: In Adelita Schaefer MD /aleena/magalis /Document#: [id number]
--- NOTE | 2017-04-11 17:50 | RADRPT ---
PROCEDURE: Intraoperative imaging of the right ankle with fluoroscopy. CLINICAL INDICATION: Right ankle pain. Intraoperative. TECHNIQUE: 2 images of the right ankle were obtained in the operating room with an image intensifi er. No radiologist was in attendance. Fluoroscopy time is 12.8 seconds. COMPARISON: No prior study is available for comparison. FINDINGS: Images demonstrate a lateral plate and multiple screws transfixing the distal fibula and a single ca nnulated screw in the medial malleolus. IMPRESSION: 1. Intraoperative imaging of the right ankle. RPTAT: QQ .Jason Weber MD, MD Date Time Electronically viewed and signed by .Jason Weber MD, on 04/11/2017 17:50 .R/
== END 2017-04-11 17:09 | disposition home or self-care (01) ==
LOC: SDS 10:41
PROVIDERS: ATTEND Orthopaedic Surgery
DX: Z47.2 Encounter for removal of internal fixation device (principal); E66.01 Morbid (severe) obesity due to excess calories; Z68.32 Body mass index [BMI] 32.0-32.9, adult; G47.30 Sleep apnea, unspecified
CPT/HCPCS: 20680; 71020; 73600; 80053; 85025; 85610; 85730; 88300; J0690; J2175; J2250; J2405; J2795; J3010

== ENCOUNTER → 2017-05-22 | Outpatient (CLI) | payer BC | END | disposition home or self-care (01) | LOC: P/T 14:16 | PROVIDERS: ATTEND Orthopaedic Surgery | DX: S82.841D Displaced bimalleolar fracture of right lower leg, subsequent encounter for closed fracture with routine healing (principal) | CPT/HCPCS: 97110; 97161 ==

== ENCOUNTER → 2018-10-14 | Outpatient (CLI) | payer BC | END | disposition home or self-care (01) | LOC: LAB 10:02 | PROVIDERS: ATTEND Internal Medicine | DX: J20.9 Acute bronchitis, unspecified (principal); R73.03 Prediabetes; E78.5 Hyperlipidemia, unspecified | CPT/HCPCS: 71046; 80053; 80061; 83036; 85025; 85651 ==

== ENCOUNTER → 2019-05-22 | Outpatient (CLI) | payer BC | END | disposition home or self-care (01) | LOC: LAB 09:40 | PROVIDERS: ATTEND Internal Medicine | DX: J20.9 Acute bronchitis, unspecified (principal); R73.03 Prediabetes; D64.9 Anemia, unspecified; S82.891D Other fracture of right lower leg, subsequent encounter for closed fracture with routine healing; X58.XXXD Exposure to other specified factors, subsequent encounter | CPT/HCPCS: 71046; 80048; 83036; 85025; 85651 ==